=== PATIENT | female | born 1975 | race Caucasian/White ===

== ENCOUNTER 2023-02-08 07:24 | Outpatient (CLI) | payer OTHER, SELFPAY ==
[2023-02-08 07:42] LABS: Basophils # 0.1 10^3/uL (0.0-0.1); Basophils % 0.7 %; Eosinophils # 0.1 10^3/uL (0.0-0.8); Eosinophils % 0.8 %; Hematocrit 40.7 % (36-47); Lymphocytes % 29.2 %; Mean Corpuscular HGB Conc 32.2 g/dL (30-55); Mean Corpuscular Hemoglobin 27.6 pg (27-33); Mean Corpuscular Volume 85.9 fl (85-98); Mean Platelet Volume 9.6 fL (7.4-10.4); Monocytes # 0.5 10^3/uL (0.2-0.9); Monocytes % 4.8 %; Neutrophils # 6.52 10^3/uL (1.8-7.7); Neutrophils % 64.2 %; Nucleated Red Blood Cells % 0 %; Platelet Count 448 10^3/cmm (157-399); Red Blood Count 4.74 10^6/uL (3.85-5.65); Red Cell Distribution Width 12.8 % (12.1-15.1); White Blood Count 10.16 10^3/uL (3.29-11.43)
[2023-02-08 08:45] LABS: Ferritin 14 ng/mL (15-150); Iron 29 ug/dL (37-145); Thyroid Stimulating Hormone 2.13 uIU/mL (0.27-4.20)
[2023-02-08 08:48] LABS: Percent Saturation 7.3 % (20-50); Total Iron Binding Capacity 394 mcg/dl; Unsaturated Iron Binding 365 ug/dL (112-347)
== END 2023-02-08 07:25 | disposition home or self-care (01) ==
LOC: LAB 07:28
PROVIDERS: PCP Clinical Nurse Specialist Adult Health; Visit Provider Clinical Nurse Specialist Adult Health
DX: D50.9 Iron deficiency anemia, unspecified (principal); R63.5 Abnormal weight gain; Z79.899 Other long term (current) drug therapy
CPT/HCPCS: 36415; 82728; 83540; 83550; 84443; 85025

== ENCOUNTER 2023-03-17 08:00 | Oncology outpatient (recurring) (ONCR) | payer OTHER, MEDICAID, SELFPAY ==
[2023-03-06 11:32] LABS: Basophils # 0.1 10^3/uL (0.0-0.1); Basophils % 0.8 %; Eosinophils # 0.1 10^3/uL (0.0-0.8); Eosinophils % 0.6 %; Hematocrit 40.4 % (36-47); Lymphocytes # 5.1 10^3/uL (0.8-4.8); Lymphocytes % 35.9 %; Mean Corpuscular HGB Conc 32.7 g/dL (30-55); Mean Corpuscular Hemoglobin 27.2 pg (27-33); Mean Corpuscular Volume 83.1 fl (85-98); Mean Platelet Volume 9.9 fL (7.4-10.4); Monocytes # 1.5 10^3/uL (0.2-0.9); Monocytes % 10.3 %; Neutrophils # 7.47 10^3/uL (1.8-7.7); Neutrophils % 52.1 %; Nucleated Red Blood Cells % 0 %; Platelet Count 531 10^3/cmm (157-399); Red Blood Count 4.86 10^6/uL (3.85-5.65); Red Cell Distribution Width 13.2 % (12.1-15.1); White Blood Count 14.32 10^3/uL (3.29-11.43)
[2023-03-06 12:14] LABS: Ferritin 14 ng/mL (15-150); Iron 38 ug/dL (37-145); Percent Saturation 8.3 % (20-50); Total Iron Binding Capacity 455 mcg/dl; Unsaturated Iron Binding 417 ug/dL (112-347)
[2023-03-08 08:16] VITALS: BP 138/88; PULSE 114; RESP 18; TEMP 36.9; O2SAT 93
[2023-03-08] MEDS: iron sucrose 200 MG in sodium chloride 0.9% (100 ml) 100 ML 220 MG IV (08:23)
[2023-03-08] MEDS: sodium chloride 0.9% 250 ML 75 ML IV (08:23)
[2023-03-08 09:00] VITALS: BP 154/78; PULSE 95; RESP 18; TEMP 36.8; O2SAT 98
[2023-03-10] MEDS: iron sucrose 200 MG in sodium chloride 0.9% (100 ml) 100 ML 220 MG IV (09:01)
[2023-03-10 09:39] VITALS: BP 128/95; PULSE 90; RESP 16; TEMP 36.8; O2SAT 94
[2023-03-13 08:32] VITALS: BP 125/82; PULSE 100; RESP 16; TEMP 36.6; O2SAT 99
[2023-03-13] MEDS: iron sucrose 200 MG in sodium chloride 0.9% (100 ml) 100 ML 220 MG IV (08:39)
[2023-03-15 07:58] VITALS: BP 130/87; PULSE 95; RESP 18; TEMP 36.9; O2SAT 98
[2023-03-15] MEDS: iron sucrose 200 MG in sodium chloride 0.9% (100 ml) 100 ML 220 MG IV (08:43)
[2023-03-15 09:24] VITALS: BP 141/78; PULSE 104; RESP 18; TEMP 36.8; O2SAT 98
[2023-03-17 08:10] VITALS: BP 147/91; PULSE 95; RESP 16; TEMP 36.7; O2SAT 95
[2023-03-17] MEDS: iron sucrose 200 MG in sodium chloride 0.9% (100 ml) 100 ML 220 MG IV (08:52)
[2023-03-17 11:03] VITALS: BP 124/78; PULSE 105; TEMP 36.5; O2SAT 93
== END 2023-03-30 23:59 | disposition home or self-care (01) ==
PROVIDERS: Internal Medicine Medical Oncology; PCP Clinical Nurse Specialist Adult Health; Visit Provider Radiology Radiation Oncology
DX: D50.9 Iron deficiency anemia, unspecified (principal)
CPT/HCPCS: 36415; 82728; 83540; 83550; 85025; 96365; J1756; J7050

== ENCOUNTER 2023-04-17 12:10 | Oncology outpatient (recurring) (ONCR) | payer OTHER, MEDICAID, SELFPAY ==
[2023-04-17 12:26] VITALS: BP 135/95; PULSE 92; RESP 16; TEMP 36.8; O2SAT 95
[2023-04-17 12:53] LABS: Basophils # 0.1 10^3/uL (0.0-0.1); Basophils % 0.7 %; Eosinophils # 0.1 10^3/uL (0.0-0.8); Eosinophils % 0.9 %; Hematocrit 41.9 % (36-47); Lymphocytes # 2.7 10^3/uL (0.8-4.8); Lymphocytes % 24.7 %; Mean Corpuscular HGB Conc 33.4 g/dL (30-55); Mean Corpuscular Hemoglobin 28.7 pg (27-33); Mean Corpuscular Volume 85.9 fl (85-98); Mean Platelet Volume 9.9 fL (7.4-10.4); Monocytes # 0.9 10^3/uL (0.2-0.9); Monocytes % 8.6 %; Neutrophils # 6.98 10^3/uL (1.8-7.7); Neutrophils % 64.8 %; Nucleated Red Blood Cells % 0 %; Platelet Count 423 10^3/cmm (157-399); Red Blood Count 4.88 10^6/uL (3.85-5.65); Red Cell Distribution Width 16.5 % (12.1-15.1); White Blood Count 10.75 10^3/uL (3.29-11.43)
[2023-04-17 13:05] LABS: Albumin Level 4.3 g/dL (3.5-5.2); Alkaline Phosphatase 112 U/L (35-105); Aspartate Amino Transferase 17 U/L (0-32); Blood Urea Nitrogen 8 mg/dL (6-20); Calcium 9.2 mg/dL (8.5-10.5); Carbon Dioxide 22 mmol/L (22-29); Chloride 103 mmol/L (98-107); Ferritin 169 ng/mL (15-150); Globulin 3.2 g/dL (1.3-4.6); Glomerular Filtration Rate 107.6 mL/min (90-130); Glucose 79 mg/dL (65-115); Iron 36 ug/dL (37-145); Osmolality Calculated 283 mOsm/kg (285-295); Percent Saturation 10.6 % (20-50); Sodium 138 mmol/L (136-145); Total Bilirubin 0.2 mg/dL (0.15-1.2); Total Iron Binding Capacity 338 mcg/dl; Total Protein 7.5 g/dL (6.6-8.7); Unsaturated Iron Binding 302 ug/dL (112-347)
[2023-04-17 13:16] LABS: Alanine Aminotransferase 27 U/L (0-33)
== END 2023-04-30 23:59 | disposition home or self-care (01) ==
PROVIDERS: Internal Medicine Medical Oncology; PCP Clinical Nurse Specialist Adult Health; Visit Provider Internal Medicine Medical Oncology
DX: D50.9 Iron deficiency anemia, unspecified (principal); D50.8 Other iron deficiency anemias; Z87.891 Personal history of nicotine dependence; Z79.899 Other long term (current) drug therapy
CPT/HCPCS: 36415; 80053; 82728; 83540; 83550; 85025

== ENCOUNTER 2023-04-18 07:10 | Outpatient (CLI) | payer OTHER, MEDICAID, SELFPAY | END 2023-04-18 07:11 | disposition home or self-care (01) | LOC: LAB 07:11 | PROVIDERS: PCP Clinical Nurse Specialist Adult Health; Visit Provider Nurse Practitioner Family | DX: D50.8 Other iron deficiency anemias (principal) | CPT/HCPCS: 82274 ==

== ENCOUNTER 2023-09-04 07:44 | Oncology outpatient (recurring) (ONCR) | payer OTHER, SELFPAY ==
[2023-09-04 08:19] LABS: Basophils # 0.1 10^3/uL (0.0-0.1); Basophils % 0.7 %; Eosinophils # 0.1 10^3/uL (0.0-0.8); Eosinophils % 0.7 %; Lymphocytes # 2.9 10^3/uL (0.8-4.8); Lymphocytes % 23.2 %; Mean Corpuscular HGB Conc 30.3 g/dL (30-55); Mean Corpuscular Hemoglobin 25.2 pg (27-33); Mean Corpuscular Volume 83.2 fl (85-98); Mean Platelet Volume 10.1 fL (7.4-10.4); Monocytes # 0.5 10^3/uL (0.2-0.9); Monocytes % 4.3 %; Neutrophils # 8.71 10^3/uL (1.8-7.7); Neutrophils % 70.8 %; Nucleated Red Blood Cells % 0 %; Platelet Count 467 10^3/cmm (157-399); Red Blood Count 4.81 10^6/uL (3.85-5.65); Red Cell Distribution Width 14.8 % (12.1-15.1); White Blood Count 12.29 10^3/uL (3.29-11.43)
[2023-09-04 08:36] LABS: Alanine Aminotransferase 21 U/L (0-33); Albumin Level 4.1 g/dL (3.5-5.2); Alkaline Phosphatase 102 U/L (35-105); Anion Gap 18.6 (5-19); Aspartate Amino Transferase 16 U/L (0-32); Blood Urea Nitrogen 14 mg/dL (6-20); Calcium 8.6 mg/dL (8.5-10.5); Carbon Dioxide 23 mmol/L (22-29); Chloride 103 mmol/L (98-107); Ferritin 13 ng/mL (15-150); Globulin 3.4 g/dL (1.3-4.6); Glomerular Filtration Rate 77.2 mL/min (90-130); Glucose 208 mg/dL (65-115); Iron 42 ug/dL (37-145); Osmolality Calculated 297 mOsm/kg (285-295); Percent Saturation 9.9 % (20-50); Potassium 4.6 mmol/L (3.5-5.1); Sodium 140 mmol/L (136-145); Total Bilirubin 0.4 mg/dL (0.15-1.2); Total Iron Binding Capacity 421 mcg/dl; Total Protein 7.5 g/dL (6.6-8.7); Unsaturated Iron Binding 379 ug/dL (112-347)
== END 2023-09-29 23:59 | disposition home or self-care (01) ==
PROVIDERS: Internal Medicine; PCP Clinical Nurse Specialist Adult Health; Visit Provider Internal Medicine Medical Oncology
DX: D50.9 Iron deficiency anemia, unspecified (principal)
CPT/HCPCS: 36415; 80053; 82728; 83540; 83550; 85025

== ENCOUNTER 2023-10-23 07:30 | Oncology outpatient (recurring) (ONCR) | payer OTHER, SELFPAY ==
[2023-10-09 11:44] LABS: Basophils # 0.1 10^3/uL (0.0-0.1); Basophils % 0.6 %; Eosinophils # 0.1 10^3/uL (0.0-0.8); Eosinophils % 0.8 %; Hematocrit 33.9 % (36-47); Lymphocytes # 3.1 10^3/uL (0.8-4.8); Lymphocytes % 21.5 %; Mean Corpuscular HGB Conc 31.6 g/dL (30-55); Mean Corpuscular Hemoglobin 24.4 pg (27-33); Mean Corpuscular Volume 77.2 fl (85-98); Mean Platelet Volume 9.8 fL (7.4-10.4); Monocytes # 1.1 10^3/uL (0.2-0.9); Monocytes % 7.6 %; Nucleated Red Blood Cells % 0 %; Platelet Count 520 10^3/cmm (157-399); Red Blood Count 4.39 10^6/uL (3.85-5.65); Red Cell Distribution Width 14.4 % (12.1-15.1); White Blood Count 14.34 10^3/uL (3.29-11.43)
[2023-10-09 12:02] LABS: Alanine Aminotransferase 22 U/L (0-33); Alkaline Phosphatase 101 U/L (35-105); Anion Gap 16.9 (5-19); Aspartate Amino Transferase 15 U/L (0-32); Blood Urea Nitrogen 10 mg/dL (6-20); Calcium 8.9 mg/dL (8.5-10.5); Carbon Dioxide 22 mmol/L (22-29); Chloride 100 mmol/L (98-107); Ferritin 8 ng/mL (15-150); Globulin 3.3 g/dL (1.3-4.6); Glomerular Filtration Rate 107.6 mL/min (90-130); Glucose 110 mg/dL (65-115); Iron 20 ug/dL (37-145); Osmolality Calculated 280 mOsm/kg (285-295); Percent Saturation 4.9 % (20-50); Potassium 3.9 mmol/L (3.5-5.1); Sodium 135 mmol/L (136-145); Total Bilirubin 0.3 mg/dL (0.15-1.2); Total Iron Binding Capacity 402 mcg/dl; Total Protein 7.3 g/dL (6.6-8.7); Unsaturated Iron Binding 382 ug/dL (112-347)
[2023-10-09 14:50] LABS: Free T4 Free Thyroxine 1.07 ng/dL (0.82-1.77); Thyroid Stimulating Hormone 2.05 uIU/mL (0.27-4.20)
[2023-10-09 16:49] LABS: LAB Peripheral Smear Sent for Review
[2023-10-10 14:45] LABS: Leukemia Profile (BBPL) See Report
[2023-10-14 22:19] LABS: P190 BCR ALB1 NOT DETECTED; P190 BCR ALB1 Yes Test Yes; P210 BCR ALB1 NOT DETECTED; P210 BCR ALB1 Yes Test Yes; Prior Results NG; Source blood
[2023-10-16 07:57] VITALS: BP 135/91; PULSE 80; RESP 17; TEMP 36.8; O2SAT 96
[2023-10-16] MEDS: ferric carboxy (IVPB) 750 MG in sodium chloride 0.9% (100 ml) 100 ML 345 MG IV (08:16)
[2023-10-16] MEDS: sodium chloride 0.9% 250 ML 75 ML IV (08:16)
[2023-10-16 08:59] VITALS: BP 144/83; PULSE 91; RESP 17; O2SAT 98
[2023-10-23 07:42] VITALS: BP 130/78; PULSE 110; RESP 18; TEMP 36.6; O2SAT 96
[2023-10-23] MEDS: ferric carboxy (IVPB) 750 MG in sodium chloride 0.9% (100 ml) 100 ML 345 MG IV (08:19)
[2023-10-23 08:43] VITALS: BP 143/91; PULSE 96; RESP 18; TEMP 36.3; O2SAT 93
== END 2023-10-29 23:59 | disposition home or self-care (01) ==
PROVIDERS: Internal Medicine; PCP Clinical Nurse Specialist Adult Health; Visit Provider Internal Medicine Medical Oncology
DX: D50.9 Iron deficiency anemia, unspecified (principal); Z79.899 Other long term (current) drug therapy
CPT/HCPCS: 36415; 80053; 80503; 81206; 81207; 81270; 81279; 81339; 81479; 82728; 83540; 83550; 84439; 84443; 85025; 88184; 88185; 96365; J1439; J7050

== ENCOUNTER 2023-11-22 10:05 | Oncology outpatient (recurring) (ONCR) | payer OTHER, SELFPAY ==
--- OUTSIDE RECORDS SUMMARY | 2023-11-22 10:06 | XMS_ITS ---
Author Name Unknown Organization [facility] Address [address] [place] [address] Care Team Providers Care Customs Patrol Officer Name Role Phone Tony De Souza APRN Primary Care Provider Kati Vicente Unavailable [phone] CORDELIA STEINBERG Unavailable Unavailable Badmelissa, Dennydunrin Unavailable [phone] REASON FOR VISIT EGD/Colon results Encounters Encounter Location Date Provider Diagnosis [facility] [address] [place] [address] 09/19/2023 Abodunrin Badejo Plan Of Treatment No Information Progress Notes * Viola BURNSDOB: 7 (47 yo F)Acc No.[id number]:09/19/2023 Patient:?Viola BURNS :1975???Age:47 Y???Sex:Female Address:[place] [address] * true * Date:? Generated for Printi ng/Faxing/eTransmitting on:?11/22/2023 10:06 AM CDT
--- OUTSIDE RECORDS SUMMARY | 2023-11-22 10:06 | XMS_ITS ---
Author Name Unknown Organization [facility] Address [address] [place] [address] Care Team Providers Care Package Maker Name Role Phone Tony De Souza APRN Primary Care Provider Kati Vicente Unavailable [phone] CORDELIA STEINBERG Unavailable Unavailable Paul Beth Unavailable [phone] REASON FOR VISIT capsule study needed Encounters Encounter Location Date Provider Diagnosis [facility] [address] [place] [address] 09/19/2023 Abonancy Beth Plan Of Treatment No Information Progress Notes * Viola BURNSDOB: [birth year] (47 yo F)Acc No.[id number]:09/19/2023 Patient:?Viola BURNS :1975???Age:47 Y???Sex:Female Address:[place] [address] * * Date:?
--- OUTSIDE RECORDS SUMMARY | 2023-11-22 10:07 | XMS_ITS ---
Author Name Unknown Organization [facility] Address [address] [place] [address] Care Team Providers Care Tape Maker Name Role Phone Tony De Souza APRN Primary Care Provider Kati Vicente Unavailable [phone] CORDELIA STEINBERG Unavailable Unavailable Paul Beth Unavailable [phone] REASON FOR VISIT iron deficiency anemia Medications Medication SIG (Take, Route, Frequency, Duration) Notes Start Date End Date Status Gabapentin 100 MG 1 capsule Orally Onc e a day Active Triamcinolone Acetonide 0.025 % 1 application Externally Once a day Active Citalopram Hydrobromide 40 MG 0.5 tablet Orally Once a day Active Clobetasol Propionate 0.05 % 1 applicati on Externally Twice a day Active Ibuprofen 800 MG 1 tablet with food o r milk as needed Orally every 8 hrs Active Vitamin B Complex - 1 tablet Orally daily Active Vitamin D3 25 MCG (1000 UT) 1 tablet Ora lly Once a day Active Magnesium 100 MG 2 tablets with meals Orally Twice a day Active Vitamin C 100 MG 1 tablet Orally Once a day Active Fish Oil 500 MG 1 capsule Orally Thr ee times a day Active Omeprazole 20 MG 1 capsule 30 minutes before morning meal Orally Once a day Active Zinc 100 MG 1 tablet Orally Once a day Active Niacin 100 MG 1 tablet with food Orally Once a day Active Turmeric 500 MG 1 tablet Orally daily Active Levocetirizine Dihydrochloride 5 MG 1 tablet in the evening Orally Once a day Active amLODIPine Besylate 5 MG 1 tablet Orally Once a day Active Reglan 10 MG 1 tablet as directed Orally once for 1 day 08/21/2023 Active Encounters Encounter Location Date Provider Diagnosis [facility] [address] [place] [address] 09/11/2023 Paul Beth Plan Of Treatment No Information Progress Notes * Viola BURNSDOB: 7 (47 yo F)Acc No.[id number]:09/11/2023 History and Physical Patient:?Viola BURNS Provider:?Paul Beth MD :1975???Age:47 Y???Sex:Female D ate:09/11/2023 [facility] Pcp:Tony De Souza APRN Check Out:08:42 AM 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 Iron deficiency anemia . * Medical History:? * Medications:?Taking Levoceti rizine Dihydrochloride 5 MG Tablet 1 tablet in the evening Orally Once a day , Taking Omeprazole 20 MG Capsule Delayed Release 1 capsule 30 minutes before morning meal Orally Once a day , Taking Zinc 100 MG Tablet 1 tablet Orally Once a day , Taking Niacin 100 MG Tablet 1 tablet with food Orally Once a day , Taking Turmeric 500 MG Tablet 1 tablet Orally daily , Taking Vitamin B Complex - Tablet 1 tablet Orally daily , Taking Vitamin D3 25 MCG (1000 UT) Tablet 1 tablet Orally Once a day , Taking Magnesium 100 MG Tablet 2 tablets with meals Orally Twice a day , Taking Vitamin C 100 MG Tablet 1 tablet Orally Once a day , Taking Fish Oil 500 MG Capsule 1 capsule Orally Three times a day , Taking Clobetasol Propionate 0.05 % Cream 1 application Externally Twice a day , Taking Ibuprofen 800 MG Tablet 1 tablet with food or milk as needed Orally every 8 hrs , Taking Gabapentin 100 MG Capsule 1 capsule Orally Once a day , Taking Triamcinolone Acetonide 0.025 % Cream 1 application Externally Once a day , Taking Citalopram Hydrobromide 40 MG Tablet 0.5 tablet Orally Once a day , Taking amLODIPine Besylate 5 MG Tablet 1 tablet Orally Once a day , Taking Reglan 10 MG Tablet 1 tablet as directed Orally once Objective: * Vitals:? Assessment: Plan: * Treatment: * Billing Information: * Visit Code:? * Procedure Codes:? * Electronic signature of Josh Beth MD on 11/22/2023 at 10:06 AM CDT Sign off status: Pending * Provider:?Paul Beth MD Date:?0 09/11/2023 Generated for Donald child/Acosta/Jeetsmitting on:?11/22/2023 10:06 AM CDT
--- OUTSIDE RECORDS SUMMARY | 2023-11-22 10:07 | XMS_ITS | Patient Health Record ---
Author Name Unknown Organization [facility] Address [address] [place] [address] Care Team Providers Care Junior High Math Teacher Name Role Phone Tony De Souza APRN Primary Care Provider Kati Vicente Unavailable [phone] CORDELIA STEINBERG Unavailable Unavailable Badejo Abodunrin Unavailable [phone] Allergies Allergen (clinical drug ingredient) Drug/Non Drug Allergy documented on EMR Reaction Allergy Type Onset Date Status erythromycin Erythromycin Unknown Drug Allergy A ctive Results Component Value Reference Range Notes Diagnostic Colonoscopy-[id number] Reviewed date:09/19/2023 02:02:27 PM Interpretation: Performing Lab: Notes/Report: EGD, Upper GI Diagnostic-[id number] Reviewed date:09/19/2023 02:08:38 PM Interpretation: Performing Lab: Notes/Report: Reason For Referral Reason Melena, Anemia w/Blo od Loss Called 06/23-Mailbox Full-Second Attempt Referring Provider First Name CORDELIA Referring Provider Last Name MARYAN Referring Provider Speciality Nurse Prac titioner Referred Organization [facility] Referred Provider Gastroenterology, Ba er [facility] Referred Address [address] [place],[address], Referred Provider Specialty Gastroentero logy General Notes Vivian Malone 05/29 02:09:40 PM >nnp Referral Priority Routine Medications Medication SIG (Take, Route, Frequency, Duration) Notes Start Date End Date Status Omeprazole 20 MG 1 capsule 30 minutes before morning meal Orally Once a day Active Gabapentin 100 MG 1 capsule Orally Onc e a day Active Zinc 100 MG 1 tablet Orally Once a day Active Triamcinolone Acetonide 0.025 % 1 application Externally Once a day Active Niacin 100 MG 1 tablet with food Orally Once a day Active Citalopram Hydrobromide 40 MG 0.5 tablet Orally Once a day Active Turmeric 500 MG 1 tablet Orally daily Active amLODIPine Besylate 5 MG 1 tablet Orally Once a day Active Vitamin B Complex - 1 tablet Orally daily Active Reglan 10 MG 1 tablet as directed Orally once for 1 day 08/21/2023 Active Vitamin D3 25 MCG (1000 UT) 1 tablet Ora lly Once a day Active Magnesium 100 MG 2 tablets with meals Orally Twice a day Active Vitamin C 100 MG 1 tablet Orally Once a day Active Fish Oil 500 MG 1 capsule Orally Thr ee times a day Active Clobetasol Propionate 0.05 % 1 applicati on Externally Twice a day Active Levocetirizine Dihydrochloride 5 MG 1 tablet in the evening Orally Once a day Active Ibuprofen 800 MG 1 tablet with food o r milk as needed Orally every 8 hrs Active Social History Tobacco Use: Social History Observation Description Date Details (start date - stop date) Former Smoker NA - NA Tobacco Control (Standard) Question Answer Notes Tobacco use: Former smoker Additional Findings: Tobacco user Light cigarett e smoker (1-9 cigs/day) AUDIT-C (Standard) Question Answer Notes Did you have a drink contain ing alcohol in the past year? Yes How often did you have six o r more drinks on one occasion in the past year? Never (0 point) How many drinks did you have on a typical day when you were drinking in the past year? 1 or 2 drinks (0 point) How often did you have a dri nk containing alcohol in the past year? Monthly or less (1 point) Points 1 Interpretation Negative Problems Problem Type SNOMED Code ICD Code Onset Dates Problem Status W/U Status Risk Notes Problem 72140458 Iron deficiency anemia, unspecified iron deficiency anemia type (D50.9) Active confirmed Problem Iron deficiency anemia (58825150) Anemia, iron deficiency (D50.9) Active confirmed Vital Signs Heart Rate 106 /min 08/21/2023 Temperature 97.8 degrees Fahrenheit 08/21/2023 Respiratory Rate 18 /min 08/21/2023 Height-cm 165.1 cm 08/21/2023 Oximetry 97 % 08/21/2023 Blood pressure diastolic 106 mm Hg 08/21/2023 Weight-kg 116.48 kg 08/21/2023 Height 65 in 08/21/2023 Blood pressure systolic 146 mm Hg 08/21/2023 Weight 256.8 lbs 08/21/2023 BMI 42.73 kg/m2 08/21/2023 Encounters Encounter Location Date Provider Diagnosis [facility] [address] [place] [address] 09/11/2023 Abodunrin Jordyejo [facility] [address] [place] [address] 08/21/2023 Kati Salgado Iron deficiency anemia, unspecified iron deficiency anemia type D50.9 [facility] [address] [place] [address] 09/19/2023 Abodunrin Badejo [facility] [address] [place] [address] 05/29/2023 [place] [facility] [address] [place] [address] 08/21/[address] [facility] [address] [place] [address] 09/19/2023 Mart[place]ain Kelsey Assessments Encounter Date Diagnosis (ICD Code) Assessment Notes Treatment Notes Treatment Clinical Notes 08/21/2023 Iron deficiency anemia, unspecified iron deficiency anemia type (ICD-10 - D50.9) The patient has a prerequisite risk factors for development of colon. I have discussed the options of diagnostic testing with their advantages and disadvantages. I have recommended colonoscopy/EGD with possible biopsy and polypectomy. Risks and Benefits: The benefits, risks, and complications were presented to pt. The patient is aware of the risk of bleeding, perforation, infection, and anesthetic complications related to procedure(s). The patient is aware that although colonoscopy/EGD is an accurate procedure, it does have some limitations. As a result, some lesions, including cancer may be missed. Ample time was given to answer all questions. Instructions given for the bowel prep. Follow up will be determined after the procedure(s). Refer back to PCP. 08/21/2023 Other Colonoscopy: Be fore Your Procedure material was printed, Upper GI Endoscopy: Before Your Procedure material was printed Plan Of Treatment No Information Insurance Providers Payer Name Payer Address Payer Phone Subscriber Number Group Number Insured Name Patient Relationship to Insured Coverage Start Date Coverage End Date [facility] [address] [place] [phone] [id number] Viola Hardy Self - patient is the insured Medical (General) History Medical History History ICD Code pneumonia anemia migraine melanoma hypertension hives bronchits anxiety depression kidney stones sleep apnea Surgical History Surgery Date(Month/Year) svt ablation 2022 left rotator cuff repair x2 breast reduction 2008 kidney stone/ lithotripsy abdominal laporascopy 2017
[2023-11-22 10:20] VITALS: BP 126/83; PULSE 89; RESP 16; TEMP 36.7; O2SAT 93
[2023-11-22] MEDS: sodium chloride 0.9% 250 ML 75 ML IV (10:37)
[2023-11-22] MEDS: ferric carboxy (PYXIS) 750 MG in sodium chloride 0.9% (100 ml) 100 ML 345 MG IV (10:38)
[2023-11-22 11:05] VITALS: BP 125/86; PULSE 80; RESP 16; TEMP 36.8; O2SAT 91
[2023-11-29 22:40] LABS: CALR Exon 9 Mutation NOT DETECTED (NOT DETECTED); CALR Exon Specimen Source blood; MPL Exon 10 Mutation NOT DETECTED (NOT DETECTED); Specimen Source LAV TOP WB
== END 2023-11-29 23:59 | disposition home or self-care (01) ==
PROVIDERS: PCP Clinical Nurse Specialist Adult Health; Visit Provider Internal Medicine Medical Oncology
DX: D50.9 Iron deficiency anemia, unspecified (principal); Z79.899 Other long term (current) drug therapy
CPT/HCPCS: 81219; 81339; 96365; J1439; J7050

== ENCOUNTER 2023-12-25 07:35 | Oncology outpatient (recurring) (ONCR) | payer OTHER, MEDICAID, SELFPAY ==
--- OUTSIDE RECORDS SUMMARY | 2023-12-08 08:47 | XMS_ITS ---
Author Name Unknown Organization [facility] Address [address] [place] [address] Care Team Providers Care Collar Turner Operator Name Role Phone Tony De Souza APRN Primary Care Provider Kati Vicente Unavailable [phone] CORDELIA STEINBERG Unavailable Unavailable Paul Beth Unavailable [phone] REASON FOR VISIT iron deficiency anemia Medications [...] [facility] [address] [place] [address] 09/11/2023 Paul Beth Plan Of Treatment No Information Progress Notes * Viola BURNSDOB: 7 (48 yo F)Acc No.[id number]:09/11/2023 History and Physical Patient:?Viola BURNS Provider:?Paul Beth MD :1975???Age:47 Y???Sex:Female D ate:09/11/2023 Address:[facility] [facility] [id number] Pcp:Tony De Souza APRN Check Out:08:42 AM 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 Iron [...] Electronic signature of Josh Beth MD on 12/08/2023 at 08:47 AM CDT Sign off status: Pending * Provider:?Paul Beth MD Date:?0 09/11/2023 Generated for Donald child/Acosta/Jeetsmitting on:?12/08/2023 08:47 AM CDT
--- OUTSIDE RECORDS SUMMARY | 2023-12-08 08:47 | XMS_ITS ---
Author Name Unknown Organization [facility] Address [address] [place] [address] Care Team Providers Care Expediter Name Role Phone Tony De Souza APRN Primary Care Provider Kati Vicente Unavailable [phone] CORDELIA STEINBERG Unavailable Unavailable Badmelissa, Dennydunrin Unavailable [phone] REASON FOR VISIT EGD/Colon results Encounters Encounter Location Date Provider Diagnosis [facility] [address] [facility] [address] 09/19/2023 Abodunrin Badejo Plan Of Treatment No Information Progress Notes * Viola BURNSDOB: [birth year] (47 yo F)Acc No.[id number]:09/19/2023 Patient:?MEAGHANTERRENCEFarzanehViola :1975???Age:47 Y???Sex:Female Address:[place] [address] * true * Date:? Generated for Printi ng/Faoneliag/eTransmitting on:?12/08/2023 08:47 AM CDT
--- OUTSIDE RECORDS SUMMARY | 2023-12-08 08:47 | XMS_ITS ---
Author Name Unknown Organization [facility] Address [address] [place] [address] Care Team Providers Care Dedicated Intermodal Truck Driver Name Role Phone Tony De Souza APRN Primary Care Provider Kati Vicente Unavailable [phone] CORDELIA STEINBERG Unavailable Unavailable Paul Beth Unavailable [phone] REASON FOR VISIT capsule study needed Encounters Encounter Location Date Provider Diagnosis [facility] [address] [place] [address] 09/19/2023 Abonancy Beth Plan Of Treatment No Information Progress Notes * Viola BURNSDOB: [birth year] (48 yo F)Acc No.[id number]:09/19/2023 Patient:?Viola BURNS :1975???Age:47 Y???Sex:Female Address:[place] [address] * * Date:?
--- OUTSIDE RECORDS SUMMARY | 2023-12-08 08:48 | XMS_ITS | Patient Health Record ---
Author Name Unknown Organization [facility] Address [address] [place] [address] Care Team Providers Care Vitreo Retinal Surgeon Name Role Phone Tony De Souza APRN Primary Care Provider Kati Vicente Unavailable [phone] CORDELIA STEINBERG Unavailable Unavailable Badejo Abodunrin Unavailable [phone] Allergies Allergen (clinical drug ingredient) Drug/Non Drug Allergy documented on EMR Reaction Allergy Type Onset Date Status erythromycin Erythromycin Unknown Drug Allergy A ctive Results Component Value Reference Range Notes Diagnostic Colonoscopy-[id number] Reviewed date:09/19/2023 02:02:27 PM Interpretation: Performing Lab: Notes/Report: EGD, Upper GI Diagnostic-[id number] Reviewed date:09/19/2023 02:08:38 PM Interpretation: Performing Lab: Notes/Report: Reason For Referral Reason Melena, Anemia w/Blo od Loss Called 06/23-Mailbox Full-Second Attempt Referring Provider First Name CORDELIA Referring Provider Last Name MARYAN Referring Provider Speciality Nurse Prac titioner Referred Organization [facility] Referred Provider Gastroenterology, Ba er [facility] Referred Address [address] [place],[address], Referred Provider Specialty Gastroentero logy General Notes Vivian Malone 05/29 02:09:40 PM >coil tester Referral Priority Routine Medications Medication SIG (Take, [...] Problem Status W/U Status Risk Notes Problem [id number] Iron deficiency anemia, unspecified iron deficiency anemia type (D50.9) Active confirmed Problem Iron deficiency anemia (39342742) Anemia, iron deficiency (D50.9) Active confirmed Vital [...] Encounter Location Date Provider Diagnosis [facility] [address] [place] [address] 09/11/2023 Abodunrin Jordyejo [facility] [address] [place] [address] 08/21/2023 Kati Salgado Iron deficiency anemia, unspecified iron deficiency anemia type D50.9 [facility] [address] [place] [address] 09/19/2023 Abodunrin Badejo [facility] [address] [place] [address] 05/29/2023 Katiyefri Salgado [facility] [address] [place] [address] 08/21/2023 [facility] [address] [place] [address] 09/19/2023 Mart[place]ain Kelsey Assessments Encounter Date Diagnosis [...] Insured Coverage Start Date Coverage End Date [facility] [address] [place] [phone] [id number] Viola Hardy Self - patient is the insured Medical (General) History Medical History History ICD Code pneumonia anemia migraine melanoma hypertension hives bronchits anxiety depression kidney stones sleep apnea Surgical History Surgery Date(Month/Year) svt ablation 2022 left rotator cuff repair x2 breast reduction 2008 kidney stone/ lithotripsy abdominal laporascopy 2017
[2023-12-25 08:31] LABS: Basophils # 0.1 10^3/uL (0.0-0.1); Basophils % 0.7 %; Eosinophils # 0.1 10^3/uL (0.0-0.8); Eosinophils % 0.7 %; Lymphocytes # 2.1 10^3/uL (0.8-4.8); Lymphocytes % 20.6 %; Mean Corpuscular HGB Conc 32.3 g/dL (30-55); Mean Corpuscular Hemoglobin 28.9 pg (27-33); Mean Corpuscular Volume 89.4 fl (85-98); Monocytes # 0.5 10^3/uL (0.2-0.9); Monocytes % 5.4 %; Neutrophils # 7.22 10^3/uL (1.8-7.7); Neutrophils % 72.3 %; Nucleated Red Blood Cells % 0 %; Platelet Count 420 10^3/cmm (157-399); Red Blood Count 4.81 10^6/uL (3.85-5.65); Red Cell Distribution Width 17.7 % (12.1-15.1); White Blood Count 9.99 10^3/uL (3.29-11.43)
[2023-12-25 08:51] LABS: Alanine Aminotransferase 31 U/L (0-33); Albumin Level 4.2 g/dL (3.5-5.2); Alkaline Phosphatase 157 U/L (35-105); Anion Gap 18.9 (5-19); Aspartate Amino Transferase 20 U/L (0-32); Blood Urea Nitrogen 10 mg/dL (6-20); Calcium 8.7 mg/dL (8.5-10.5); Carbon Dioxide 22 mmol/L (22-29); Chloride 101 mmol/L (98-107); Globulin 3.2 g/dL (1.3-4.6); Glomerular Filtration Rate 89.7 mL/min (90-130); Glucose 185 mg/dL (65-115); Osmolality Calculated 290 mOsm/kg (285-295); Potassium 3.9 mmol/L (3.5-5.1); Sodium 138 mmol/L (136-145); Total Bilirubin 0.3 mg/dL (0.15-1.2); Total Protein 7.4 g/dL (6.6-8.7)
[2023-12-25 09:10] LABS: Ferritin 125 ng/mL (15-150); Iron 60 ug/dL (37-145); Percent Saturation 19.4 % (20-50); Total Iron Binding Capacity 308 mcg/dl; Unsaturated Iron Binding 248 ug/dL (112-347)
== END 2023-12-30 23:59 | disposition home or self-care (01) ==
PROVIDERS: PCP Clinical Nurse Specialist Adult Health; Visit Provider Internal Medicine Medical Oncology
DX: Z53.9 Procedure and treatment not carried out, unspecified reason; Z79.899 Other long term (current) drug therapy; D50.8 Other iron deficiency anemias
CPT/HCPCS: 36415; 80053; 82274; 82728; 83540; 83550; 85025

== ENCOUNTER 2024-01-11 14:03 | Outpatient (CLI) | payer OTHER, MEDICAID, SELFPAY ==
--- NOTE | 2024-01-11 14:10 | XR_ITS ---
WS: [id number] XR abdomen 1V* [id number] REASON FOR EXAM: IRON DEFICIENCY ANEMIA FINDINGS: No free air or retroperitoneal air. No unremarkable bowel gas pattern. No mass or significant calcification. XR/XR abdomen 1V* [id number] IMPRESSION: No significant abnormality.
== END 2024-01-11 14:04 | disposition home or self-care (01) ==
LOC: LAB 14:05 → RAD 14:08
PROVIDERS: PCP Clinical Nurse Specialist Adult Health; Visit Provider Internal Medicine Gastroenterology
DX: D50.9 Iron deficiency anemia, unspecified (principal)
CPT/HCPCS: 74018

== ENCOUNTER 2024-02-26 12:30 | Oncology outpatient (recurring) (ONCR) | payer OTHER, MEDICAID, SELFPAY ==
[2024-02-05 12:48] LABS: Basophils # 0.1 10^3/uL (0.0-0.1); Basophils % 0.5 %; Eosinophils # 0.1 10^3/uL (0.0-0.8); Eosinophils % 0.5 %; Hematocrit 39.7 % (36-47); Lymphocytes % 23.6 %; Mean Corpuscular HGB Conc 32.7 g/dL (30-55); Mean Corpuscular Hemoglobin 28.9 pg (27-33); Mean Corpuscular Volume 88.2 fl (85-98); Mean Platelet Volume 10.2 fL (7.4-10.4); Monocytes # 0.6 10^3/uL (0.2-0.9); Neutrophils # 8.95 10^3/uL (1.8-7.7); Nucleated Red Blood Cells % 0 %; Platelet Count 519 10^3/cmm (157-399); Red Cell Distribution Width 12.8 % (12.1-15.1)
[2024-02-05 13:09] LABS: Ferritin 23 ng/mL (15-150); Iron 23 ug/dL (37-145); Percent Saturation 5.9 % (20-50); Total Iron Binding Capacity 386 mcg/dl; Unsaturated Iron Binding 363 ug/dL (112-347)
[2024-02-26 13:01] VITALS: BP 119/79; PULSE 105; RESP 16; TEMP 37.1; O2SAT 95
[2024-02-26] MEDS: ferric carboxy (PYXIS) 750 MG in sodium chloride 0.9% (100 ml) 100 ML 345 MG IV (13:20)
[2024-02-26 13:55] VITALS: BP 137/71; PULSE 86; RESP 16; TEMP 36.8; O2SAT 95
== END 2024-02-29 23:59 | disposition home or self-care (01) ==
PROVIDERS: Nurse Practitioner Family; PCP Clinical Nurse Specialist Adult Health; Visit Provider Internal Medicine Hematology & Oncology
DX: Z53.9 Procedure and treatment not carried out, unspecified reason (principal); D50.8 Other iron deficiency anemias; Z79.899 Other long term (current) drug therapy
CPT/HCPCS: 36415; 82728; 83540; 83550; 85025; 96365; J1439

== ENCOUNTER 2024-03-25 15:00 | Oncology outpatient (recurring) (ONCR) | payer OTHER, MEDICAID, SELFPAY ==
[2024-03-21 09:18] LABS: Basophils # 0.1 10^3/uL (0.0-0.1); Basophils % 0.5 %; Eosinophils # 0.1 10^3/uL (0.0-0.8); Eosinophils % 0.6 %; Lymphocytes # 2.5 10^3/uL (0.8-4.8); Lymphocytes % 22.7 %; Mean Corpuscular HGB Conc 31.4 g/dL (30-55); Mean Corpuscular Hemoglobin 27.8 pg (27-33); Mean Corpuscular Volume 88.4 fl (85-98); Mean Platelet Volume 9.8 fL (7.4-10.4); Monocytes # 0.7 10^3/uL (0.2-0.9); Monocytes % 6.4 %; Neutrophils # 7.65 10^3/uL (1.8-7.7); Neutrophils % 69.5 %; Nucleated Red Blood Cells % 0 %; Platelet Count 450 10^3/cmm (157-399); Red Blood Count 4.75 10^6/uL (3.85-5.65); Red Cell Distribution Width 16.7 % (12.1-15.1); White Blood Count 11.01 10^3/uL (3.29-11.43)
[2024-03-21 09:55] LABS: Albumin Level 4.4 g/dL (3.5-5.2); Chloride 103 mmol/L (98-107); Potassium 4.3 mmol/L (3.5-5.1); Sodium 138 mmol/L (136-145)
[2024-03-21 10:22] LABS: Alanine Aminotransferase 29 U/L (0-33); Alkaline Phosphatase 123 U/L (35-105); Anion Gap 17.3 (5-19); Aspartate Amino Transferase 24 U/L (0-32); Blood Urea Nitrogen 8 mg/dL (6-20); Calcium 9.1 mg/dL (8.5-10.5); Carbon Dioxide 22 mmol/L (22-29); Globulin 2.9 g/dL (1.3-4.6); Glomerular Filtration Rate 89.7 mL/min (90-130); Glucose 133 mg/dL (65-115); Osmolality Calculated 286 mOsm/kg (285-295); Total Bilirubin 0.3 mg/dL (0.15-1.2); Total Protein 7.3 g/dL (6.6-8.7)
[2024-03-21 11:01] LABS: Ferritin 97 ng/mL (15-150)
[2024-03-21 11:13] LABS: Iron 38 ug/dL (37-145); Total Iron Binding Capacity 378 mcg/dl
[2024-03-21 11:14] LABS: Unsaturated Iron Binding 340 ug/dL (112-347)
[2024-03-25 15:29] VITALS: BP 126/78; PULSE 88; RESP 16; TEMP 36.6; O2SAT 98
[2024-03-25] MEDS: ferric carboxy (PYXIS) 750 MG in sodium chloride 0.9% (100 ml) 100 ML 345 MG IV (15:34)
[2024-03-25 16:11] VITALS: BP 124/84; PULSE 99; RESP 17; TEMP 36.2; O2SAT 93
== END 2024-03-30 23:59 | disposition home or self-care (01) ==
PROVIDERS: Nurse Practitioner Family; PCP Clinical Nurse Specialist Adult Health; Visit Provider Internal Medicine Hematology & Oncology
DX: Z53.9 Procedure and treatment not carried out, unspecified reason (principal); Z79.899 Other long term (current) drug therapy; D50.9 Iron deficiency anemia, unspecified
CPT/HCPCS: 36415; 80053; 82728; 83540; 83550; 85025; 96365; J1439

== ENCOUNTER 2024-04-17 20:00 | Outpatient (CLI) | payer OTHER, MEDICAID, SELFPAY | END 2024-04-17 20:01 | disposition home or self-care (01) | LOC: SLEEP 23:10 | PROVIDERS: PCP Clinical Nurse Specialist Adult Health; Visit Provider Specialist | DX: G47.33 Obstructive sleep apnea (adult) (pediatric) (principal); G47.36 Sleep related hypoventilation in conditions classified elsewhere | CPT/HCPCS: 95810 ==

== ENCOUNTER 2024-04-29 12:58 | Oncology outpatient (recurring) (ONCR) | payer OTHER, MEDICAID, SELFPAY ==
[2024-04-29 13:35] LABS: Basophils # 0.1 10^3/uL (0.0-0.1); Basophils % 0.7 %; Eosinophils # 0.1 10^3/uL (0.0-0.8); Eosinophils % 0.4 %; Hematocrit 39.4 % (36-47); Lymphocytes # 2.2 10^3/uL (0.8-4.8); Lymphocytes % 19.3 %; Mean Corpuscular HGB Conc 31.7 g/dL (30-55); Mean Corpuscular Hemoglobin 28.7 pg (27-33); Mean Corpuscular Volume 90.6 fl (85-98); Mean Platelet Volume 10.2 fL (7.4-10.4); Monocytes # 0.8 10^3/uL (0.2-0.9); Monocytes % 6.6 %; Neutrophils # 8.27 10^3/uL (1.8-7.7); Neutrophils % 72.7 %; Nucleated Red Blood Cells % 0 %; Platelet Count 458 10^3/cmm (157-399); Red Blood Count 4.35 10^6/uL (3.85-5.65); Red Cell Distribution Width 16.9 % (12.1-15.1); White Blood Count 11.38 10^3/uL (3.29-11.43)
[2024-04-29 13:52] LABS: Alanine Aminotransferase 28 U/L (0-33); Albumin Level 4.1 g/dL (3.5-5.2); Alkaline Phosphatase 142 U/L (35-105); Anion Gap 14.2 (5-19); Aspartate Amino Transferase 19 U/L (0-32); Blood Urea Nitrogen 10 mg/dL (6-20); Calcium 9.2 mg/dL (8.5-10.5); Carbon Dioxide 24 mmol/L (22-29); Chloride 102 mmol/L (98-107); Creatinine Clr Calc Pharmacy 128.7687; Ferritin 72 ng/mL (15-150); Globulin 3.2 g/dL (1.3-4.6); Glomerular Filtration Rate 89.7 mL/min (90-130); Glucose 137 mg/dL (65-115); Iron 27 ug/dL (37-145); Osmolality Calculated 283 mOsm/kg (285-295); Percent Saturation 7.4 % (20-50); Potassium 4.2 mmol/L (3.5-5.1); Sodium 136 mmol/L (136-145); Total Bilirubin 0.2 mg/dL (0.15-1.2); Total Iron Binding Capacity 362 mcg/dl; Total Protein 7.3 g/dL (6.6-8.7); Unsaturated Iron Binding 335 ug/dL (112-347)
== END 2024-04-30 23:59 | disposition home or self-care (01) ==
PROVIDERS: Nurse Practitioner Family; PCP Clinical Nurse Specialist Adult Health; Visit Provider Internal Medicine Hematology & Oncology
DX: D50.8 Other iron deficiency anemias; Z53.9 Procedure and treatment not carried out, unspecified reason
CPT/HCPCS: 36415; 80053; 82728; 83540; 83550; 85025

== ENCOUNTER 2024-05-20 15:00 | Oncology outpatient (recurring) (ONCR) | payer OTHER, MEDICAID, SELFPAY ==
[2024-05-13] MEDS: ferric carboxy (IVPB) 750 MG in sodium chloride 0.9% (100 ml) 100 ML 345 MG IV (15:51)
[2024-05-13 16:16] VITALS: BP 147/91; PULSE 91; TEMP 36.7; O2SAT 97
[2024-05-20 14:57] VITALS: BP 150/90; PULSE 114; RESP 18; TEMP 36.4; O2SAT 95
[2024-05-20] MEDS: ferric carboxy (PYXIS) 750 MG in sodium chloride 0.9% (100 ml) 100 ML 345 MG IV (15:11)
[2024-05-20 15:50] VITALS: BP 117/74; PULSE 120; RESP 16; TEMP 36.8; O2SAT 98
== END 2024-05-31 23:59 | disposition home or self-care (01) ==
PROVIDERS: PCP Clinical Nurse Specialist Adult Health; Visit Provider Internal Medicine Hematology & Oncology
DX: Z53.9 Procedure and treatment not carried out, unspecified reason (principal); D50.8 Other iron deficiency anemias
CPT/HCPCS: 96365; J1439

== ENCOUNTER → 2024-06-25 08:05 | Outpatient (BNVA) | payer OTHER, MEDICAID, SELFPAY | DX: S82.401D Unspecified fracture of shaft of right fibula, subsequent encounter for closed fracture with routine healing (principal); X58.XXXD Exposure to other specified factors, subsequent encounter | CPT/HCPCS: 73610 ==

== ENCOUNTER 2024-06-28 08:16 | Day surgery (SDC) | payer OTHER, MEDICAID, SELFPAY ==
[2024-06-28] VITALS (15 sets, daily range): BP systolic 98–148; BP diastolic 68–99; PULSE 87–104; RESP 13–22; TEMP 36.1–36.7; O2SAT 91–98
--- NOTE | 2024-06-28 | XR_ITS ---
WS: [email or web address] XR ankle RT 2V [id number] REASON FOR EXAM: GIFTY PICS FINDINGS: Plate and screw fixation of spiral fibular fracture extending from supra syndesmotic to intra syndesmotic. Surgical appliances intact and in proper position and alignment. Fracture fragments are in good apposition and alignment. XR/XR ankle RT 2V [id number] IMPRESSION: Fibular fracture with internal fixation as above.
[2024-06-28] MEDS: sodium chloride 0.9% 1,000 ML 30 ML IV (08:48)
[2024-06-28] MEDS: CELEcoxib 200 mg Capsule 400 MG PO (08:49)
[2024-06-28] MEDS: gabapentin 300 mg Capsule PO (08:49)
--- NOTE | 2024-06-28 09:06 | W.PM.OPSUD ---
Surgery/Procedure H&P Update DATE OF PROCEDURE: June 28, 2024 DATE H&P PERFORMED: 06/25/24 H&P UPDATE INFORMATION: I have reviewed H&P completed within last 30 days, I have examined patient prior to procedure, No changes to prior documentation and H&P is in [facility] EMR on date indicated PREOP DIAGNOSIS: Right ankle fracture PLANNED PROCEDURE: Operation Date: 06/28/24 10:10 Proposed Procedures p ORIF Distal Fibula(Right) - Dequan Cantu DPM
--- NOTE | 2024-06-28 09:58 | P.ANESASSM_ITS ---
Pre-Anesthetic Assessment Height/Weight: Height 5 ft 5 in Weight 250 lb Temp Pulse Resp BP Pulse Ox O2 Del Method 98.1 F 104 H 18 148/99 97 Room Air 06/28/24 08:30 06/28/24 08:30 06/28/24 08:30 06/28/24 08:30 06/28/24 08:30 06/28/24 08:30 Preop Diagnosis: Right ankle fracture Operation Date: 06/28/24 10:10 Proposed Procedures p ORIF Distal Fibula(Right) - CELIA GomezM Was Beta Ryan taken within 24 hours: N/A Was Clonidine taken within 24 hours: N/A Last intake: Intake Last Liquid Date 06/27/24 Last Liquid Time 20:00 Last Solid Date 06/27/24 Last Solid Time 20:00 Social No alcohol and No tobacco Exam alert, oriented x 3, clear to auscultation bilaterally and regular rate & rhythm Airway Submandibular: within normal limits Cervical ROM: within normal limits Mallampati: Class II Dentition: full Anesthetic Plan ASA status: 3 Anesthesia: General and Regional (specify below) Other: Patient states that she has awareness under anesthesia. Multiple prior anesthet ics without issues in the recent past NPO since yesterday evening History of HANNAH, no treatment Hypertension on amlodipine GERD on omeprazole Recent labs in March reviewed and acceptable for procedure. Patient has history of iron deficiency anemia METs greater than 4 Plan for general anesthesia with preop nerve block Medications/Allergies Home Medications ?Medication ?Instructions ?Recorded ?Confirmed ?Last Taken ?Type etonogestrel 68 mg subdermal 1 implant subdermal ONCE #1 ea 02/07/23 06/28/24 06/29/21 Rx implant (Nexplanon) ketoconazole 2 % shampoo 1 applic topical Q14D #120 m L 02/07/23 06/28/24 Unknown Rx triamcinolone acetonide 0.025 % 1 applic topical DAILY #15 grams 02/19/23 06/28/24 Unknown Rx topical cream amlodipine 5 mg tablet 5 mg PO DAILY #90 tabs 06/1906/28/24 06/28/24 Rx citalopram 40 mg tablet 40 mg PO DAILY #90 tabs 06/0106/28/24 06/27/24 Rx betamethasone dipropionate 0.05 % 1 applic topical ONC E PRN Itching 10/09/23 06/28/24 Unknown History topical ointment omeprazole 20 mg capsule,delayed 20 mg PO DAILY #90 ca ps 01/02/24 06/28/24 06/28/24 Rx release albuterol sulfate 90 mcg/actuation 2 puff inhalation Q 4H PRN 02/19/24 06/28/24 Unknown Rx aerosol inhaler (Ventolin HFA) shortness of breath or wheezing #8.5 grams tirzepatide (weight loss) 10 10 mg (0.5 mL) SUBCUT ONC E 4 weeks 05/15/24 06/28/24 Unknown Rx mg/0.5 mL subcutaneous pen #2 mL injector (Zepbound) tirzepatide (weight loss) 15 15 mg (0.5 mL) SUBCUT ONC E 4 weeks 05/15/24 06/28/24 Unknown Rx mg/0.5 mL subcutaneous pen #2 mL injector (Zepbound) tirzepatide (weight loss) 2.5 2.5 mg (0.5 mL) SUBCUT O NCE Sleep 05/15/24 06/28/24 Unknown Rx mg/0.5 mL subcutaneous pen Apnea 4 weeks #2 mL injector (Zepbound) tirzepatide (weight loss) 7.5 7.5 mg (0.5 mL) SUBCUT O NCE 4 05/15/24 06/28/24 Unknown Rx mg/0.5 mL subcutaneous pen weeks #2 mL injector (Zepbound) exenatide 5 mcg/dose (250 5 mcg (0.02 mL) SUBCUT BID # 1.2 mL 05/27/24 06/28/24 06/26/24 Rx mcg/mL)1.2 mL subcutaneous pen injector ([place]) ibuprofen 800 mg tablet 800 mg PO Q6H PRN pain #90 t abs 05/27/24 06/28/24 06/27/24 Rx clobetasol 0.05 % scalp solution 1 applic topical LAINE Y #50 mL 06/12/24 06/28/24 Unknown Rx tirzepatide (weight loss) 5 mg/0.5 5 mg (0.5 mL) SUBCU T ONCE 4 weeks 06/21/24 06/28/24 Unknown Rx mL subcutaneous pen injector #2 mL (Zepbound) lisdexamfetamine 60 mg capsule 60 mg PO DAILY 1 month #30 caps 06/24/24 06/28/24 Unknown Rx (Vyvanse) lisdexamfetamine 60 mg capsule 60 mg PO DAILY 30 days #30 caps 06/24/24 06/28/24 Unknown Rx (Vyvanse) lisdexamfetamine 60 mg capsule 60 mg PO DAILY 30 days #30 caps 06/24/24 06/28/24 Unknown Rx (Vyvanse) cam walker #1 ea 06/25/24 06/28/24 Unkn own Rx crutch #2 ea 06/25/24 06/28/24 Unkn own Rx hydrocodone 10 mg-acetaminophen 1 tab PO Q6H PRN pain 7 days #28 06/28/24 Unknown Rx 325 mg tablet tabs Allergies Allergy/AdvReac Type Severity Reaction Status Date / Time erythromycin base Allergy Mild vomiting Verified 06/25/24 13:57 tree and shrub pollen Allergy Mild ALGY-Watery Verified 06/25/24 13:57 Eye acetaminophen (From Allergy ADR-Vomitin Verified 06/27/24 09:15 Tylenol-Codeine) g codeine (From Allergy ADR-Vomitin Verified 06/27/24 09:15 Tylenol-Codeine) g Current Medications Generic Name Dose Route Start Last Admin Trade Name Freq PRN Reason Stop Dose Admin Sodium Chloride 1,000 mls @ 30 mls/hr 06/28/24 08:30 06/28/24 08:48 Sodium Chloride 0.9% IV 06/29/24 08:29 30 mls/hr .Q24H MARIANNA Administration PFSH Anesthesia Medical History HANNAH (obstructive sleep apnea) noncompliant with CPAP GERD (gastroesophageal reflux disease) Renal calculi Generalized anxiety disorder on citalopram Essential hypertension Joint pain takes gabapentin Endometriosis cymbalta treats the pain for this Psoriasis Eczema Family hx of melanoma Weight gain 40 pounds in 1 year Breast mass in female gets mammos every 6 months, january and july Leukocytosis Iron deficiency anemia Surgical History History of radiofrequency ablation (RFA) for complex right atrial arrhythmia Hx of breast reduction, elective Hx of prior ablation treatment uterine Hx of exploratory laparotomy due to endometriosis Family History Grandfather Leukemia Cancer Mother Cancer Grandmother Cancer Family/Other Melanoma Other Hyperlipidemia Hypertension Denies family history of Clotting disorder Anesthesia complication Bleeding disorder Family history of premature coronary artery disease Lung disease Stroke Social History Smoking and tobacco/nicotine status: former use of tobacco/nicotine Quit status (tobacco/nicotine): has quit using Year quit tobacco: 2002 Former quit date comment: smoked 5 years Alcohol intake: current Alcohol intake frequency: holidays/special occasions only Substance/Drug Use: never Household members: family Marital status: Single Data Anesthesia Cardiac Studies: No Data to Display
--- NOTE | 2024-06-28 10:01 | ANES.PROC ---
Anesthesia Procedures Procedure/Date: 06/28/24 Nerve Block ^: Nerve Block 1: Main Anesthesia: other (100 mcg fentanyl and 2 mg Versed) Time Out Performed: Yes Consent: requested by attending/covering physician and from patient Nerve block location: popliteal Anesthesia monitors applied: pulse oximetry, EKG, BP cuff and oxygen Nerve block position: supine Anesthetic Used: ropivicaine 0.5% Amount of anesthesia used (mL): 30 Ultrasound used to: recognize landmarks Interscalene/Femoral BLK: other needle (pjunk 4inch) Injection: neg aspiration of heme Patient Tolerated Procedure: well Complications: none Additional Comments: Decadron 4 mg added to block
--- NOTE | 2024-06-28 10:03 | PM.OP ---
Operative Report Date of procedure: June 28, 2024 Pre-op diagnosis: Bimalleolar fracture of right ankle S82.841A Post-op diagnosis: Bimalleolar fracture of right ankle S82.841A Procedure done: Open reduction internal fixation right distal fibula. CPT code 97111 Implants: 2-0 Vicryl, 3-0 Vicryl, skin mateo, [place] anatomic 11 hole fibular plate with 3.5 mm locking screws x 10 Specimens removed/disposition: No specimens Pathology: None Surgeon: Dequan Cantu DPM Band And Cuff Cutter: Bridgette Gutierrez Estimated blood loss: 5 29 IV fluids: See intraoperative documentation Urine output: None Complications: No complications Brief History: Pleasant 48-year-old female presents with bimalleolar equivalent fracture to the right ankle date of injury 06/25/2024 fell at home. X-ray right ankle 3 views taken in clinic shows a long oblique Baron Redmond B fracture and avulsion fracture of the medial malleolus. Informed patient that she has the equivalent of a bimalleolar fracture. Discussed both conservative and surgical options. She is heavily leaning toward surgical options as she is working, going to school and is a single mother and does not want to have the increased risks of delayed healing or needing surgery down the road should conservative management not heal appropriately. I reviewed at length with the patient, the risks, potential complications, benefits, alternatives, expectations, and typical outcomes associated with the surgery. The risks and potential complications were explained in detail, including but not limited to infection, wound dehiscence or soft tissue complications, bleeding and hematoma, chronic edema, neuritis or nerve damage producing numbness or chronic pain, CRPS, failure to relieve pain or worsening pain, thick / painful / unsightly scar, limited motion / stiffness, malposition, delayed union, malunion, or nonunion, fracture, reaction to implants, anesthetic complications, venous thromboembolism, and deformity recurrence. I discussed the notion of no regrets with the patient as it pertains to complications and outcomes. The patient seemed to understand the nature of the proposed care and required convalescence. They asked appropriate questions, answered to their satisfaction. They are aware no guarantees can be made as to a satisfactory outcome and they understand there may be other possible unforeseen complications or outcomes not listed here that will be treated accordingly if they arise. There were no written or implied guarantees given to the patient. They gave informed consent to proceed. Procedure: Under mild sedation the patient was brought to the operating room and remained on the gurney in supine position. A timeout was performed. Anesthesia was then administered by the anesthesia service. Of note popliteal block was performed to the right lower extremity per anesthesia preoperatively. Well-padded pneumatic tourniquet was applied to the right high calf. The right lower extremity was scrubbed, prepped and draped utilizing normal aseptic technique. Right lower extremity was then exanguinated with an Esmarch bandage and the tourniquet inflated to 250 mmHg. Attention was directed to the lateral aspect of the right ankle where a linear longitudinal incision was made directly over the lateral malleolus through skin with a 15 blade with dissection carried down to periosteum utilizing a combination of sharp and blunt technique. Care was taken to retract and preserve neurovascular and tendinous structures. All bleeders were ligated and cauterized as necessary. Fracture was identified at the lateral malleolus this was distracted and curettage of hematoma followed by saline flush this was reduced and temporarily stabilized, intraoperative C-arm confirmed the reduction of the fracture was pulled out to length the rotated and congruent ankle mortise appreciated in the AP oblique and lateral views. Next utilizing a standard AO technique a [place] anatomic fibular plate was utilized to fixate the fracture with locking screws with excellent bony apposition and compression noted. Rigid fixation appreciated intraoperatively with smooth range of motion of the ankle achieved both with dorsiflexion and plantarflexion with AP oblique and lateral views with intraoperative C-arm confirmed hardware did not violate the mortise. The incision was irrigated with saline solution. Cotton hook test negative for syndesmotic disruption. Closure performed with 2-0 Vicryl with deep structures including periosteum, 3-0 Vicryl for subcutaneous tissue and skin with mateo. The incision was dressed with Xeroform sterile 4 x 4 gauze Kerlix and well-padded multilayer posterior splint with stirrup. Tourniquet was deflated and a prompt hyperemic response is noted to the distal digits of the right foot. Patient tolerated the procedure and anesthesia well and was transferred to the PACU with vital signs stable and vascular status intact. Following a period of postoperative monitoring she will be discharged home without home care instructions and scheduled follow-up.
[2024-06-28] MEDS: ceFAZolin 3,000 MG in sodium chloride 0.9% (plus) 100 ML 200 MG IV (10:20)
--- NOTE | 2024-06-28 11:10 | P.BOP_ITS ---
Date of Procedure: 07/14/23 Surgeon: Dequan Cantu DPM Medical Lab Technician(s): Kike Procedure(s) performed: Open reduction internal fixation right distal fibula Findings of the procedure(s): Syndesmosis intact Estimated blood loss: 5 mL Specimen(s) removed: No specimens Post-operative diagnosis: Fracture right ankle bimalleolar equivalent
--- NOTE | 2024-06-28 13:05 | ANE.PACU2 ---
Inpatient post-anesthesia follow up: Airway intact: Yes Vital signs: Temperature 97.9 F Pulse Rate 94 Respiratory Rate 18 Blood Pressure 145/87 Pulse Oximetry 91 Oxygen Delivery Me thod Room Air Oxygen Flow Rate 3 Fraction of Inspir ed Oxygen Hydration adequate: Yes Nausea and vomiting: No Pain level: 1 Mental status: Baseline
== END 2024-06-28 13:05 | disposition home or self-care (01) ==
PROVIDERS: Visit Provider Podiatrist Foot & Ankle Surgery
PROC: (CPT 27792; principal; 2024-06-28 10:00)
DX: S82.841A Displaced bimalleolar fracture of right lower leg, initial encounter for closed fracture (principal); Z88.1 Allergy status to other antibiotic agents; Z79.899 Other long term (current) drug therapy; G47.33 Obstructive sleep apnea (adult) (pediatric); K21.9 Gastro-esophageal reflux disease without esophagitis; I10 Essential (primary) hypertension; Z87.891 Personal history of nicotine dependence; W19.XXXA Unspecified fall, initial encounter
CPT/HCPCS: 27792; 73600; 76000; C1713; J0690; J2704; J3010; J3490; J7030

== ENCOUNTER → 2024-07-11 11:22 | Outpatient (BNVA) | payer OTHER, MEDICAID, SELFPAY | PROVIDERS: Visit Provider Podiatrist Foot & Ankle Surgery | DX: Z98.890 Other specified postprocedural states (principal); S82.841D Displaced bimalleolar fracture of right lower leg, subsequent encounter for closed fracture with routine healing; X58.XXXD Exposure to other specified factors, subsequent encounter | CPT/HCPCS: 73610 ==

== ENCOUNTER 2024-07-24 12:56 | Oncology outpatient (recurring) (ONCR) | payer OTHER, MEDICAID, SELFPAY ==
[2024-07-24 13:42] LABS: Basophils # 0.1 10^3/uL (0.0-0.1); Basophils % 0.6 %; Eosinophils # 0.1 10^3/uL (0.0-0.8); Eosinophils % 0.9 %; Hematocrit 37.6 % (36-47); Lymphocytes # 2.3 10^3/uL (0.8-4.8); Lymphocytes % 22.2 %; Mean Corpuscular HGB Conc 32.2 g/dL (30-55); Mean Corpuscular Hemoglobin 28.8 pg (27-33); Mean Corpuscular Volume 89.5 fl (85-98); Mean Platelet Volume 9.9 fL (7.4-10.4); Monocytes # 0.8 10^3/uL (0.2-0.9); Monocytes % 7.7 %; Neutrophils % 68.3 %; Nucleated Red Blood Cells % 0 %; Platelet Count 544 10^3/cmm (157-399); Red Cell Distribution Width 13.9 % (12.1-15.1); White Blood Count 10.54 10^3/uL (3.29-11.43)
[2024-07-24 14:06] LABS: Alanine Aminotransferase 21 U/L (0-33); Albumin Level 4.3 g/dL (3.5-5.2); Alkaline Phosphatase 143 U/L (35-105); Aspartate Amino Transferase 16 U/L (0-32); Blood Urea Nitrogen 14 mg/dL (6-20); Calcium 9.1 mg/dL (8.5-10.5); Carbon Dioxide 22 mmol/L (22-29); Chloride 105 mmol/L (98-107); Ferritin 58 ng/mL (15-150); Globulin 2.7 g/dL (1.3-4.6); Glomerular Filtration Rate 89.7 mL/min (90-130); Glucose 100 mg/dL (65-115); Iron 36 ug/dL (37-145); Osmolality Calculated 291 mOsm/kg (285-295); Percent Saturation 10.9 % (20-50); Sodium 140 mmol/L (136-145); Total Bilirubin 0.2 mg/dL (0.15-1.2); Total Iron Binding Capacity 329 mcg/dl; Unsaturated Iron Binding 293 ug/dL (112-347)
== END 2024-07-29 23:59 | disposition home or self-care (01) ==
LOC: ONCMED 12:58
PROVIDERS: Internal Medicine Medical Oncology; Visit Provider Internal Medicine
DX: D50.8 Other iron deficiency anemias (principal); G47.10 Hypersomnia, unspecified; G47.33 Obstructive sleep apnea (adult) (pediatric); I10 Essential (primary) hypertension; F41.1 Generalized anxiety disorder; E66.01 Morbid (severe) obesity due to excess calories; Z68.41 Body mass index [BMI] 40.0-44.9, adult
CPT/HCPCS: 36415; 80053; 82728; 83540; 83550; 85025

== ENCOUNTER → 2024-08-08 14:17 | Outpatient (BNVA) | payer OTHER, MEDICAID, SELFPAY | PROVIDERS: Visit Provider Podiatrist Foot & Ankle Surgery | DX: Z98.890 Other specified postprocedural states (principal); Z87.81 Personal history of (healed) traumatic fracture | CPT/HCPCS: 73610 ==

== ENCOUNTER 2024-08-20 14:46 | Outpatient (CLI) | payer OTHER, MEDICAID, SELFPAY ==
--- NOTE | 2024-08-20 14:48 | MM_ITS ---
WS: [id number] BILATERAL 3D TOMOSYNTHESIS DIGITAL SCREENING MAMMOGRAPHY WITH CAD CLINICAL INFORMATION: SCREENING HISTORY: Screening mammogram. No current complaints. History of breast reduction COMPARISON: Outside mammogram 2022. TECHNIQUE: Bilateral CC and MLO views. FINDINGS: Scattered fibroglandular densities bilaterally. No suspicious focal mass, asymmetry, calcifications, or architectural distortion. No evidence of malignancy. Similar-appearing ovoid nodule anterior LEFT breast. Additional work-up is recommended on the outside report. Recommend further evaluation LEFT breast diagnostic mammography and ultrasound. RIGHT breast appears unchanged. MM/MM [facility] tomosynthesis [id number] IMPRESSION: DENSITY: There are scattered areas of fibroglandular density. BI-RADS: 0 - Incomplete: Need additional imaging evaluation. FOLLOW UP: Need Additional Imaging Recommend LEFT breast diagnostic mammography and ultrasound.
== END 2024-08-20 14:47 | disposition home or self-care (01) ==
PROVIDERS: Visit Provider Specialist
DX: Z12.31 Encounter for screening mammogram for malignant neoplasm of breast (principal); R92.323 Mammographic fibroglandular density, bilateral breasts; N63.20 Unspecified lump in the left breast, unspecified quadrant
CPT/HCPCS: 77063; 77067